=== PATIENT | female | born 2000 | race Caucasian/White ===

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

== ENCOUNTER 2018-09-08 18:05 | Emergency (ER) | payer OTHER ==
[~2018-09-08] VITALS: Ht 172.7 cm; Wt 59.1 kg
[~2018-09-08 18:05] MED LIST: HYDR-3363 PO; HYDR-3910 PO
[2018-09-08 18:06] VITALS: BP 117/58
[2018-09-08] MEDS ORDERED: IBUP-1114 PO (18:28)
== END 2018-09-08 18:40 | disposition home or self-care (01) ==
LOC: M ED 18:05
DX: K08.89 Other specified disorders of teeth and supporting structures (principal); S02.5XXA Fracture of tooth (traumatic), initial encounter for closed fracture; X58.XXXA Exposure to other specified factors, initial encounter; Y92.9 Unspecified place or not applicable; Y93.9 Activity, unspecified; Y99.9 Unspecified external cause status

== ENCOUNTER 2018-12-09 18:39 | Emergency (ER) | payer OTHER ==
[~2018-12-09] VITALS: Ht 170.2 cm; Wt 56.3 kg
[~2018-12-09 18:39] MED LIST changes: +IBUP-1114 PO
[2018-12-09] MEDS ORDERED: EXCETAB33 PO (18:45)
[2018-12-09] MEDS ORDERED: IBUP-1022 PO (20:01)
[2018-12-09] MEDS ORDERED: PENI500T PO (20:02)
[2018-12-09] MEDS ORDERED: IBUPROFEN 800 MG TAB PO ONE (20:15)
[2018-12-09 20:19] VITALS: BP 100/67
== END 2018-12-09 20:27 | disposition home or self-care (01) ==
LOC: M ED 18:39
DX: K04.7 Periapical abscess without sinus (principal)

== ENCOUNTER 2019-02-02 11:42 | Emergency (ER) | payer OTHER ==
[~2019-02-02] VITALS: Ht 172.7 cm; Wt 56.8 kg
[2019-02-02 11:42] VITALS: BP 122/76
[~2019-02-02 11:42] MED LIST changes: +EXCETAB33 PO; +IBUP-1022 PO; +PENI500T PO
[2019-02-02] MEDS ORDERED: IBUP-1022 PO (11:50)
[2019-02-02] MEDS ORDERED: PERC5TAB12 PO (12:08)
[2019-02-02] MEDS ORDERED: IBUP80TA PO (12:08)
[2019-02-02] MEDS ORDERED: LIDVISCBTL TOP (12:08)
== END 2019-02-02 12:20 | disposition home or self-care (01) ==
LOC: M ED 11:42
DX: K02.9 Dental caries, unspecified (principal); S02.5XXA Fracture of tooth (traumatic), initial encounter for closed fracture; X58.XXXA Exposure to other specified factors, initial encounter; Y92.89 Other specified places as the place of occurrence of the external cause; F41.9 Anxiety disorder, unspecified; F90.9 Attention-deficit hyperactivity disorder, unspecified type

== ENCOUNTER 2019-04-13 17:55 | Emergency (ER) | payer OTHER ==
[~2019-04-13] VITALS: Ht 170.2 cm; Wt 55.9 kg
[~2019-04-13 17:55] MED LIST changes: +IBUP80TA PO; +LIDVISCBTL TOP; +PERC5TAB12 PO
[2019-04-13] MEDS ORDERED: PSEUDOEPHEDRINE 30 MG TAB PO STA (19:52)
[2019-04-13] MEDS ORDERED: AMOX500C PO (19:57)
[2019-04-13] MEDS ORDERED: PROAAER10 INH (19:57)
[2019-04-13] MEDS ORDERED: PSEU120T19 PO (19:57)
[2019-04-13] MEDS ORDERED: ALBUTEROL 90 MCG/ACT 8GM HFA INHALER INH ONE ×2 (20:00→20:15)
[2019-04-13] MEDS ORDERED: AMOXICILLIN 500 MG CAP PO ONE (20:00)
[2019-04-13 20:28] VITALS: BP 113/70
== END 2019-04-13 20:30 | disposition home or self-care (01) ==
LOC: M ED 17:55
DX: H66.92 Otitis media, unspecified, left ear (principal); J06.9 Acute upper respiratory infection, unspecified

== ENCOUNTER → 2021-12-05 | Outpatient (CLI) | payer MEDICAID, OTHER ==
[~2021-12-05] MED LIST changes: +AMOX500C PO; +EXCETAB32 PO; -EXCETAB33 PO; +PROAAER10 INH; +PSEU120T19 PO
[2021-12-05 17:18] LABS: HEMATOCRIT 38.5 % (36.0-47.0); HEMOGLOBIN 13.2 g/dl (12.0-15.5); MEAN CORPUSCULAR HEMOGLOBIN 29.4 pg (27.0-33.0); MEAN CORPUSCULAR HGB CONC 34.3 g/dl (32.0-36.5); MEAN CORPUSCULAR VOLUME 85.7 fl (80.0-96.0); PLATELET COUNT, AUTOMATED 214 10^3/uL (150-450); RED BLOOD COUNT 4.49 10^6/uL (4.00-5.40); WHITE BLOOD COUNT 8.4 10^3/uL (4.0-10.0)
[2021-12-05 18:39] LABS: HEPATITIS C VIRUS ABY INDEX 0.1 INDEX (<0.8); HIV 1&2 SCREEN CENTAUR NEGATIVE (NEGATIVE)
[2021-12-05 19:14] LABS: GC DNA AMPLIFICATION NEGATIVE (NEGATIVE)
== END ==
LOC: M PLALAB 14:56
PROVIDERS: ATTEND Advanced Practice Midwife
DX: Z34.01 Encounter for supervision of normal first pregnancy, first trimester (principal)

== ENCOUNTER → 2022-02-13 | Outpatient (CLI) | payer MEDICAID, OTHER | LOC: M WHC 10:34 | PROVIDERS: ATTEND Obstetrics & Gynecology | DX: Z36.9 Encounter for antenatal screening, unspecified (principal); Z3A.22 22 weeks gestation of pregnancy; O28.3 Abnormal ultrasonic finding on antenatal screening of mother ==

== ENCOUNTER 2022-03-14 14:05 | Outpatient (CLI) | payer OTHER, MEDICAID ==
[~2022-03-14] VITALS: Ht 172.7 cm; Wt 65.7 kg
[2022-03-14 14:26] VITALS: BP 122/60
[2022-03-14] MEDS ORDERED: FAMO40TA3 PO (14:30)
[2022-03-14] MEDS ORDERED: PRENTAB9 PO (14:30)
[2022-03-14] MEDS ORDERED: CYCL-707 PO (15:55)
== END 2022-03-14 16:22 | disposition home or self-care (01) ==
LOC: M LDO 14:05
PROVIDERS: ATTEND Specialist
DX: O26.892 Other specified pregnancy related conditions, second trimester (principal); M54.50 Low back pain, unspecified; R25.2 Cramp and spasm; Z3A.26 26 weeks gestation of pregnancy

== ENCOUNTER → 2022-04-06 | Outpatient (CLI) | payer OTHER ==
[~2022-04-06] MED LIST changes: +CYCL-707 PO; +FAMO40TA3 PO; +PRENTAB9 PO
== END ==
LOC: M WHC 14:16
PROVIDERS: ATTEND Obstetrics & Gynecology
DX: O26.892 Other specified pregnancy related conditions, second trimester (principal); Z3A.29 29 weeks gestation of pregnancy

== ENCOUNTER → 2022-05-18 | Outpatient (CLI) | payer MEDICAID, OTHER ==
[2022-05-18 11:41] LABS: HEMOGLOBIN A1c 5.4 %
== END ==
LOC: M PLALAB 10:19
PROVIDERS: ATTEND Specialist
DX: Z36.89 Encounter for other specified antenatal screening (principal)

== ENCOUNTER → 2022-05-24 | Outpatient (REF) | payer OTHER | LOC: M SFHCWAGY 15:09 | PROVIDERS: ATTEND Specialist | DX: Z34.03 Encounter for supervision of normal first pregnancy, third trimester (principal) ==

== ENCOUNTER 2022-06-07 09:11 | Inpatient (IN) | payer OTHER ==
[~2022-06-07] VITALS: Ht 170.2 cm; Wt 70.4 kg
[2022-06-07] VITALS (35 sets, daily range): BP systolic 88–148; BP diastolic 51–86
[2022-06-07] MEDS ORDERED: OMEP40CA5 PO (09:33)
[2022-06-07] MEDS ORDERED: HOME MED LIST COMPLETE! XX SCH (09:35)
[2022-06-07] MEDS ORDERED: LACTATED RINGER'S 1000 ML IV STA (10:22)
[2022-06-07] MEDS ORDERED: OXYTOCIN DRIP 30 UNITS in IV 1 EA IV PRN ×4 (10:25)
[2022-06-07] MEDS ORDERED: CARBOPROST TROMETHAMINE 250 MCG/ML AMP IM PRN (10:25)
[2022-06-07] MEDS ORDERED: LIDOCAINE 1% MDV 20ML VIAL INFIL PRN (10:25)
[2022-06-07] MEDS ORDERED: OXYTOCIN INJ 10 UNITS/ML VIAL (J2590) IM PRN (10:25)
[2022-06-07] MEDS ORDERED: METHYLERGONOVINE MALEATE 0.2 MG/ML VIAL (J2210) IM PRN (10:25)
[2022-06-07] MEDS ORDERED: TRANEXAMIC ACID INJection 1,000 MG in NS 100 ML IV PRN (10:25)
[2022-06-07] MEDS: LR 1,000 ML IV SCH ×2 (10:50→15:54)
[2022-06-07 11:07] LABS: HEMATOCRIT 33.4 % (36.0-47.0); HEMOGLOBIN 11.2 g/dl (12.0-15.5); MEAN CORPUSCULAR HEMOGLOBIN 28.4 pg (27.0-33.0); MEAN CORPUSCULAR HGB CONC 33.5 g/dl (32.0-36.5); MEAN CORPUSCULAR VOLUME 84.6 fl (80.0-96.0); PLATELET COUNT, AUTOMATED 238 10^3/uL (150-450); RED BLOOD COUNT 3.95 10^6/uL (4.00-5.40)
[2022-06-07] MEDS ORDERED: FENTANYL 2MCG/ML ROPIVACAINE 0.2% IN 0.9% NACL 100ML IVBAG As Ordered ONE (11:56)
[2022-06-07] MEDS ORDERED: NALOXONE INJ 0.4MG/1ML VIAL (J2310 PER 1MG) IV PRN (12:05)
[2022-06-07] MEDS ORDERED: FENTANYL/ROPIVACAINE/NACL BAG 100 ML EPIDURAL SCH (12:05)
[2022-06-07] MEDS ORDERED: ONDANSETRON 4MG 2ML VIAL IV PRN (12:05)
[2022-06-07] MEDS ORDERED: EPIDURAL/PCA KEYS XX PRN (12:05)
[2022-06-07] MEDS ORDERED: diphenhydrAMINE 50MG/ML VIAL (J1200) IV PRN (12:05)
[2022-06-07] MEDS ORDERED: ePHEDrine SULFATE 25 MG/5 ML(5MG/ML) SYRINGE IVP PRN (12:05)
[2022-06-07] MEDS ORDERED: LR 500 ML IV PRN (12:15)
[2022-06-07] MEDS ORDERED: OXYTOCIN DRIP 30 UNITS in IV 1 EA IV SCH ×2 (16:00→18:40)
[2022-06-07] MEDS ORDERED: IBUPROFEN 800 MG TAB PO PRN (18:40)
[2022-06-07] MEDS ORDERED: DIBUCAINE 1% OINTMENT 30GM TOP PRN (18:40)
[2022-06-07] MEDS ORDERED: METHYLERGONOVINE MALEATE 0.2 MG TAB PO PRN (18:40)
[2022-06-07] MEDS ORDERED: RHOGAM 300 MCG (1500 IU) INJ (J2790) IM SCH (18:40)
[2022-06-07] MEDS ORDERED: IBUPROFEN 600MG TAB PO PRN (18:40)
[2022-06-07] MEDS ORDERED: ACETAMINOPHEN TAB 650MG DOSE (2X325MG) PO PRN (18:40)
[2022-06-07] MEDS ORDERED: ACETAMINOPHEN 500 MG TAB PO PRN (18:40)
[2022-06-07] MEDS ORDERED: DOCUSATE SODIUM 100MG CAPSULE PO PRN (18:40)
[2022-06-07] MEDS ORDERED: CYCLOBENZAPRINE 5MG TABLET PO ONE (19:20)
[2022-06-08 06:00] VITALS: BP 97/55
[2022-06-08] MEDS ORDERED: DOCUSATE SODIUM 100MG CAPSULE PO PRN (09:00)
[2022-06-08] MEDS ORDERED: BOOSTRIX/ADACEL VACCINE (DIPHTH/PERTUSS/ACELL/TETANUS) 0.5ML SYR IM.IMMUN ONE (09:00)
[2022-06-08] MEDS: PRENATAL VITAMINS CHEWABLE TABLET PO SCH (09:35)
[2022-06-08 18:00] VITALS: BP 103/67
[2022-06-09 06:00] VITALS: BP 111/67
[2022-06-09] MEDS: PRENATAL VITAMINS CHEWABLE TABLET PO SCH (07:58)
[2022-06-09] MEDS ORDERED: MEASLES,MUMPS,RUBELLA VACCINE INJ (MMR-II) (90707) SC.IMMUN ONE (09:00)
== END 2022-06-09 11:36 | disposition home or self-care (01) | DRG 560 ==
LOC: M LDO 09:11 → M LDI 10:29 → M OBS 20:20
PROVIDERS: ADMIT Advanced Practice Midwife; ATTEND Advanced Practice Midwife
PROC: 10E0XZZ Delivery of Products of Conception, External Approach (ICD-10-PCS; principal; 2022-06-07)
PROC: 0HQ9XZZ Repair Perineum Skin, External Approach (ICD-10-PCS; 2022-06-07)
DX: O99.324 Drug use complicating childbirth (principal); F12.90 Cannabis use, unspecified, uncomplicated; Z37.0 Single live birth; Z3A.38 38 weeks gestation of pregnancy; O70.0 First degree perineal laceration during delivery

== ENCOUNTER → 2023-03-16 | Outpatient (REF) | payer OTHER ==
[~2023-03-16] MED LIST changes: +OMEP40CA5 PO
[2023-03-16 17:06] LABS: BASO # 0.1 10^3/uL (0.0-0.2); BASO % 1.3 % (0.0-1.0); EOS # 0.1 10^3/uL (0.0-0.5); EOS % 1.8 % (0.0-3.0); HEMATOCRIT 41.7 % (36.0-47.0); HEMOGLOBIN 13.4 g/dl (12.0-15.5); LYMPH # 2.1 10^3/uL (1.5-5.0); MEAN CORPUSCULAR HEMOGLOBIN 27.3 pg (27.0-33.0); MEAN CORPUSCULAR HGB CONC 32.1 g/dl (32.0-36.5); MEAN CORPUSCULAR VOLUME 85.1 fl (80.0-96.0); MONO # 0.6 10^3/uL (0.0-0.8); MONO % 9.4 % (2.0-8.0); NEUTROPHILS # 3.4 10^3/uL (1.5-8.5); NEUTROPHILS % 54.2 % (36.0-66.0); PLATELET COUNT, AUTOMATED 235 10^3/uL (150-450); WHITE BLOOD COUNT 6.3 10^3/uL (4.0-10.0)
[2023-03-16 17:10] LABS: ALKALINE PHOSPHATASE 66 U/L (46-116); ALT/SGPT 11 U/L (7.0-40); AST/SGOT 8 U/L (<34); BILIRUBIN,TOTAL 0.5 MG/DL (0.3-1.2); BLOOD UREA NITROGEN 13 MG/DL (9-23); CALCIUM LEVEL 9.4 MG/DL (8.5-10.1); CARBON DIOXIDE LEVEL 27 MMOL/L (20-31); CHLORIDE LEVEL 104 MMOL/L (98-107); CHOLESTEROL LEVEL 168 MG/DL (<200); CREATININE FOR GFR 0.72 MG/DL (0.55-1.30); GLOMERULAR FILTRATION RATE > 60.0 (>60); GLUCOSE, FASTING 98 MG/DL (60-100); HDL CHOLESTEROL 69.8 MG/DL (>40); LDL CHOLESTEROL 88.8 MG/DL (<100); NON-HDL-C 98.2 MG/DL; POTASSIUM SERUM 4.1 MMOL/L (3.5-5.1); SODIUM LEVEL 139 MMOL/L (136-145); TOTAL PROTEIN 7.2 G/DL (5.7-8.2); TRIGLYCERIDES LEVEL 47 MG/DL (<150)
[2023-03-16 17:12] LABS: THYROID STIMULATING HORMONE 1.282 uIU/ML (0.55-4.78); TOTAL 25(OH) VITAMIN D 7.5 NG/ML (20.0-100.0)
== END ==
LOC: M LAB REF 16:12
PROVIDERS: ATTEND Pediatrics
DX: F41.8 Other specified anxiety disorders (principal); F10.10 Alcohol abuse, uncomplicated; K21.9 Gastro-esophageal reflux disease without esophagitis; Z13.220 Encounter for screening for lipoid disorders; E55.9 Vitamin D deficiency, unspecified

== ENCOUNTER → 2025-03-13 | Outpatient (CLI) | payer OTHER ==
[~2025-03-13] MED LIST changes: -HYDR-3910 PO; +HYDR25TA87 PO
== END ==
LOC: M WHC 08:59
PROVIDERS: ATTEND Nurse Practitioner Family
DX: Z34.82 Encounter for supervision of other normal pregnancy, second trimester (principal); Z3A.20 20 weeks gestation of pregnancy

== ENCOUNTER → 2025-04-14 | Outpatient (CLI) | payer OTHER ==
[~2025-04-14] MED LIST changes: -IBUP-1022 PO; +IBUP600T42 PO
== END ==
LOC: M WHC 14:51
PROVIDERS: ATTEND Nurse Practitioner Family
DX: Z36.2 Encounter for other antenatal screening follow-up (principal); Z3A.24 24 weeks gestation of pregnancy

== ENCOUNTER → 2025-05-13 | Outpatient (CLI) | payer OTHER ==
[2025-05-13 15:04] LABS: PLATELET COUNT, AUTOMATED 203 10^3/uL (150-450)
[2025-05-13 15:31] LABS: GLUCOSE CHALLENGE TEST 1 HOUR 102 MG/DL (LESS THAN 140)
[2025-05-13 16:01] LABS: HIV 1&2 SCREEN NEGATIVE (NEGATIVE)
[2025-05-13 16:09] LABS: HEPATITIS C VIRUS ABY INDEX < 0.02 INDEX (<0.8)
[2025-05-13 16:28] LABS: Trichomonas vaginalis (AMP) NOT DETECTED (NEGATIVE)
[2025-05-13 16:52] LABS: GC DNA AMPLIFICATION NEGATIVE (NEGATIVE)
== END ==
LOC: M PLALAB 11:09
PROVIDERS: ATTEND Advanced Practice Midwife
DX: Z34.82 Encounter for supervision of other normal pregnancy, second trimester (principal)

== ENCOUNTER → 2025-06-23 | Outpatient (REF) | payer OTHER | LOC: M PLALAB 15:43 | PROVIDERS: ATTEND Student in an Organized Health Care Education/Training Program | DX: N89.8 Other specified noninflammatory disorders of vagina (principal) ==

== ENCOUNTER → 2025-07-10 | Outpatient (REF) | payer OTHER | LOC: M SFHCWAGY 14:49 | PROVIDERS: ATTEND Obstetrics & Gynecology | DX: O26.893 Other specified pregnancy related conditions, third trimester (principal); Z3A.37 37 weeks gestation of pregnancy ==